=== PATIENT | female | born 1985 | race Caucasian/White ===

== ENCOUNTER 2017-07-29 12:41 | Outpatient (CLI) ==
[2016-06-19 09:21] VITALS: BMI 37.9
--- NOTE | 2017-07-29 13:23 | CT ---
EXAM: CT cervical spine without contrast. HISTORY: Chronic neck pain. Remote trauma. COMPARISON: None available. TECHNIQUE: Multiple axial images of the cervical spine were obtained without intravenous contrast. Images were reformatted in the sagittal and coronal planes. FINDINGS: Beam attenuation degrades image quality. There is straightening of the normal lordosis. Ot herwise, there is normal curvature and alignment. Vertebral body and intervertebral disc heights are maintained. No fracture or subluxation is seen. There is no evidence for significant central canal stenosis within the limitations of artifact. The prevertebral soft tissues are unremarkable. Mild left sphenoid sinus mucosal thickening noted. Nonspecific lymph nodes are seen measuring up to 1 cm bilateral level IIa on axial image 41. Correlation advised. IMPRESSION: No acute abnormality of the cervical spine. Consider MRI if symptoms persist.
== END 2017-07-29 12:42 | disposition home or self-care (01) ==
LOC: RAD 12:41
PROVIDERS: ATTEND Nurse Practitioner Family
DX: M54.2 Cervicalgia (principal); G89.29 Other chronic pain

== ENCOUNTER 2017-12-04 16:44 | Outpatient (CLI) ==
[2016-06-19 09:21] VITALS: BMI 37.9
== END 2017-12-04 16:45 | disposition home or self-care (01) ==
LOC: FCC-LAB 16:44
PROVIDERS: ATTEND Family Medicine
DX: R63.5 Abnormal weight gain (principal); R53.81 Other malaise; R53.83 Other fatigue; Z87.820 Personal history of traumatic brain injury
CPT/HCPCS: 36415; 80053; 84439; 84443; 85025

== ENCOUNTER 2018-03-23 13:48 | Inpatient (IN) ==
[2018-03-23] MEDS ORDERED: ROCEPHIN 1 GM in SODIUM CHLORIDE 50 ML IV STA (14:11)
[2018-03-23] MEDS ORDERED: VANCOMYCIN 1 GM in SODIUM CHLORIDE 250 ML IV STA (14:11)
--- NOTE | 2018-03-23 14:14 | ED.PDOC ---
General ED Provider: Dr. MARIBETH GLEASON Chief Complaint: Extremity Pain/Injury Stated Complaint: Patient was shooting Meth, left arm, it is swollen tender, not able to move the left elbow. it is all swollen red. Time Seen by Physician: 14:13 Mode of Arrival: Walk-In Information Source: Patient, Family Primary Care Provider: JERSON HILTON Nursing and Triage Documentation Reviewed and Agree: Yes Does patient meet sepsis criteria?: No If yes, has appropriate treatment been initiated?: No System Inflammatory Response Syndrome: Not Applicable Sepsis Protocol: For patient's 13 years and over: Temp is 96.8 and below OR 101 and greater Pulse >90 BPM Resp >20/minute Acutely Altered Mental Status Are patient's symptoms suggestive of a new infection, such as: -Pneumonia -Skin, Soft Tissue -Endocarditis -UTI -Bone, Joint Infection -Implantable Device -Acute Abdominal Infection -Wound Infection -Meningitis -Blood Stream Catheter Infection -Unknown Skin Complaint Exam - Skin/Soft Tissue Complaint/Exam Symptoms Are: Still present Timing: Constant Initial Severity: Severe Current Severity: Severe Character: Reports: Redness, Swelling, Raised, Painful Aggravating: Reports: Touch Alleviating: Reports: None Associated Signs and Symptoms: Reports: Fever, Drainage, Tenderness, Red streaks , Joint swelling Related Surgical History: Reports: None Recent Exposure to Others w/Similar Symptoms: No Skin Findings: Present: Erythema, Induration. Absent: Fluctuant mass Differential Diagnoses: Abscess, Cellulitis Review of Systems - Review Of Systems Constitutional: Reports: No symptoms Eyes: Reports: No symptoms Ears, Nose, Mouth, Throat: Reports: No symptoms Respiratory: Reports: No symptoms Cardiac: Reports: No symptoms GI: Reports: No symptoms : Reports: No symptoms Musculoskeletal: Reports: No symptoms Skin: Reports: No symptoms Neurological: Reports: No symptoms Endocrine: Reports: No symptoms Hematologic/Lymphatic: Reports: No symptoms All Other Systems: Reviewed and Negative Past Medical History - Past Medical History Previously Healthy: Yes Endocrine: Reports: None Cardiovascular: Reports: CAD, Hypertension Respiratory: Reports: COPD, Other (Emphysema) Hematological: Reports: None Gastrointestinal: Reports: None Genitourinary: Reports: None Neuro/Psych: Reports: Migraine, Depression, Other (TBI) Musculoskeletal: Reports: None Cancer: Reports: Unknown Last Menstrual Period: 03/01 - Surgical History General Surgical History: Reports: , Unknown - Family History Family History: Reports: Unknown - Social History Smoking Status: Current every day smoker, Heavy tobacco smoker Smoking Cessation Counseling Time: > 3 min - 10 min Hx Substance Use: Yes (meth) Alcohol Screening: Occasionally Physical Exam - Physical Exam Appearance: Ill-appearing, Obese Pain Distress: Severe Eyes: MUNA, EOMI, Conjunctiva clear ENT: Ears normal, Nose normal, Oropharynx normal Respiratory: Airway patent, Breath sounds clear, Breath sounds equal, Respirations nonlabored Cardiovascular: RRR, Pulses normal, No rub, No murmur GI/: Soft, Nontender, No masses, Bowel sounds normal, No Organomegaly Musculoskeletal: Limited ROM, Limited strength Skin: Warm, Dry, Normal color Neurological: Sensation intact, Motor intact, Reflexes intact, Cranial nerves intact, Alert, Oriented Psychiatric: Affect appropriate, Mood appropriate Interpretation - Radiology Interpretation Radiology Interpretation By: Radiologist Radiology Results: Positive Exam Interpreted: CT Scan Critical Care Note - Critical Care Note Total Time (mins): 30 Course - Course Hematology/Chemistry: 03/23/18 14:25 03/23/18 14:25 Orders, Labs, Meds: Lab Review 03/23/18 03/23/18 03/23/18 14:25 14:25 14:25 WBC 11.56 H RBC 4.49 Hgb 14.3 Hct 41.8 MCV 93.1 MCH 31.8 H MCHC 34.2 RDW Coeff of Shilpi 12.8 Plt Count 204 Immature Gran % (Auto) 0.3 Neut % (Auto) 70.5 Lymph % (Auto) 16.6 [place] % (Auto) 11.3 H Eos % (Auto) 1.0 Baso % (Auto) 0.3 Immature Gran # (Auto) 0.0 Neut # (Auto) 8.1 H Lymph # (Auto) 1.9 [place] # (Auto) 1.3 Eos # (Auto) 0.1 Baso # (Auto) 0.0 Sodium 134 L Potassium 3.0 L Chloride 104 Carbon Dioxide 23 Anion Gap 10.0 BUN 5 L Creatinine 0.69 Estimated GFR (MDRD) 97.00 BUN/Creatinine Ratio 7.24 Glucose 110 Lactic Acid 9.0 Calcium 8.7 Total Bilirubin 0.8 AST 15 ALT 22 Alkaline Phosphatase 83 Total Protein 6.4 Albumin 2.7 L Globulin 3.7 Albumin/Globulin Ratio 0.73 Procalcitonin Urine Color Urine Clarity Urine pH Ur Specific [place] Urine Protein Urine Glucose (UA) Urine Ketones Urine Blood Urine Nitrite Urine Bilirubin Urine Urobilinogen Ur Leukocyte Esterase Urine Microscopic WBC Ur Squamous Epith Cells Urine Bacteria Urine Mucus Urine Trichomonas Urine Test Urine Opiates Screen Ur Oxycodone Screen Urine Methadone Screen Ur Propoxyphene Screen Ur Barbiturates Screen U Tricyclic Antidepress Ur Phencyclidine Scrn Ur Amphetamine Screen U Methamphetamines Scrn U Benzodiazepines Scrn Urine Cocaine Screen U Cannabinoids Screen 03/23/18 03/23/18 03/23/18 14:25 14:25 14:25 WBC RBC Hgb Hct MCV MCH MCHC RDW Coeff of Shilpi Plt Count Immature Gran % (Auto) Neut % (Auto) Lymph % (Auto) [place] % (Auto) Eos % (Auto) Baso % (Auto) Immature Gran # (Auto) Neut # (Auto) Lymph # (Auto) [place] # (Auto) Eos # (Auto) Baso # (Auto) Sodium Potassium Chloride Carbon Dioxide Anion Gap BUN Creatinine Estimated GFR (MDRD) BUN/Creatinine Ratio Glucose Lactic Acid Calcium Total Bilirubin AST ALT Alkaline Phosphatase Total Protein Albumin Globulin Albumin/Globulin Ratio Procalcitonin < 0.05 Urine Color [place] Urine Clarity Clear Urine pH 6.5 Ur Specific [place] 1.025 Urine Protein 1+ Urine Glucose (UA) Negative Urine Ketones Negative Urine Blood Negative Urine Nitrite Positive Urine Bilirubin 1+ Urine Urobilinogen >=8.0 Ur Leukocyte Esterase Trace Urine Microscopic WBC 0-2 Ur Squamous Epith Cells 0-2 Urine Bacteria 1+ Urine Mucus 2+ Urine Trichomonas Few Urine Test Negative Urine Opiates Screen Ur Oxycodone Screen Urine Methadone Screen Ur Propoxyphene Screen Ur Barbiturates Screen U Tricyclic Antidepress Ur Phencyclidine Scrn Ur Amphetamine Screen U Methamphetamines Scrn U Benzodiazepines Scrn Urine Cocaine Screen U Cannabinoids Screen 03/23/18 14:25 WBC RBC Hgb Hct MCV MCH MCHC RDW Coeff of Shilpi Plt Count Immature Gran % (Auto) Neut % (Auto) Lymph % (Auto) [place] % (Auto) Eos % (Auto) Baso % (Auto) Immature Gran # (Auto) Neut # (Auto) Lymph # (Auto) [place] # (Auto) Eos # (Auto) Baso # (Auto) Sodium Potassium Chloride Carbon Dioxide Anion Gap BUN Creatinine Estimated GFR (MDRD) BUN/Creatinine Ratio Glucose Lactic Acid Calcium Total Bilirubin AST ALT Alkaline Phosphatase Total Protein Albumin Globulin Albumin/Globulin Ratio Procalcitonin Urine Color Urine Clarity Urine pH Ur Specific [place] Urine Protein Urine Glucose (UA) Urine Ketones Urine Blood Urine Nitrite Urine Bilirubin Urine Urobilinogen Ur Leukocyte Esterase Urine Microscopic WBC Ur Squamous Epith Cells Urine Bacteria Urine Mucus Urine Trichomonas Urine Test Urine Opiates Screen Negative Ur Oxycodone Screen Negative Urine Methadone Screen Negative Ur Propoxyphene Screen Negative Ur Barbiturates Screen Negative U Tricyclic Antidepress Positive Ur Phencyclidine Scrn Negative Ur Amphetamine Screen Positive U Methamphetamines Scrn Positive U Benzodiazepines Scrn Positive Urine Cocaine Screen Negative U Cannabinoids Screen Positive Orders Category Date Time Status ED IV/MEDIPORT/POWERPORT .ONCE EMERGENCY 03/23/18 14:11 Active BLOOD CULTURE (ED ONLY) Stat LAB 03/23/18 14:25 Received CBC W/ AUTO DIFF Stat LAB 03/23/18 14:25 Completed COMPREHENSIVE METABOLIC PANEL Stat LAB 03/23/18 14:25 Completed LACTIC ACID Stat LAB 03/23/18 14:25 Completed PROCALCITONIN Stat LAB 03/23/18 14:25 Completed URINALYSIS C & S IF INDICATED Stat LAB 03/23/18 14:25 Completed URINE CULTURE Stat LAB 03/23/18 14:25 Received URINE DRUG SCREEN (RAPID FOR ED) [DRUG SCREEN, URINE, LAB 03/23/18 14:25 Completed RAPID] Stat URINE Stat LAB 03/23/18 14:25 Completed 0.9 % Sodium Chloride [Saline Flush] MEDS 03/23/18 14:11 Ordered 1 syr IVF PRN PRN Ceftriaxone Sodium [Rocephin] MEDS 03/23/18 17:15 Discontinued 1 gm .ROUTE .STK-MED ONE Ceftriaxone Sodium [Rocephin] 1 gm MEDS 03/23/18 14:11 Discontinued 0.9 % Sodium Chloride [Sodium Chloride] 50 ml IV ONCE Vancomycin HCl [Vancomycin] 1 gm MEDS 03/23/18 14:11 Discontinued 0.9 % Sodium Chloride [Sodium Chloride] [address] FOREARM LEFT WO CONTRAST Stat RADS 03/23/18 14:11 Completed Medications Generic Name Dose Route Start Last Admin Trade Name Freq PRN Reason Stop Dose Admin Sodium Chloride 1 syr 03/23/18 14:11 Saline Flush IVF PRN PRN To flush IV Discontinued Medications Generic Name Dose Route Start Last Admin Trade Name Freq PRN Reason Stop Dose Admin Ceftriaxone Sodium 1 gm/ 50 mls @ 75 mls/hr 03/23/18 14:11 Sodium Chloride IV 03/23/18 14:50 ONCE STA Vancomycin HCl 1 gm/ Sodium 250 mls @ 250 mls/hr 03/23/18 14:11 Chloride IV 03/23/18 15:10 ONCE STA Vital Signs: Temp Pulse Resp BP Pulse Ox 03/23/18 13:50 98.6 F 104 H 20 110/75 96 Departure - Departure Time of Disposition: 17:28 Disposition: ADMITTED INPATIENT Discharge Problem: Phlebitis Cellulitis Qualifiers: Site of cellulitis: extremity Site of cellulitis of extremity: upper extremity Laterality: left Qualified Code(s): L03.114 - Cellulitis of left upper limb Discharge Problem: (Ruled Out): Cellulitis and abscess of left lower extremity Instructions: Cellulitis (ED) Condition: Stable Pt referred to PMD for follow-up: No IPMP verified?: No Allergies/Adverse Reactions: Allergies ondansetron HCl [From Zofran (as hydrochloride)] Adverse Reaction (Verified 13:56) nausea/vomiting. Home Medications: Ambulatory Orders Ziprasidone HCl [Geodon] 60 mg PO BID 07/02/13 Clonazepam [Klonopin] 1 mg PO TID 12/04/17 Quetiapine Fumarate 300 mg PO DAILY 12/04/17 Ziprasidone HCl 20 mg PO BID 12/04/17 Disposition Discussed With: Patient, Family
--- NOTE | 2018-03-23 15:17 | CT ---
Exam: CT of the left forearm without intravenous contrast. Comparison: None available. Reason for exam: Left forearm pain. FINDINGS: No acute fracture or malalignment is seen in the left forearm. There is moderate to marke d inflammatory changes in the proximal left forearm adjacent to the elbow and antecubital fossa. No d iscrete fluid collection is seen. No obvious involvement of the underlying musculature or osseous st ructures. Impression: Moderate to marked inflammatory change in the proximal left forearm without obvious underlying muscul ar or osseous involvement. Image interpretation is limited by the lack of intravenous contrast admin istration. Imaging findings can be seen with infection, inflammation, and hemorrhage. If clinical concern exists for soft tissue pathology, MRI or contrasted CT imaging may be performed f or further characterization. If clinical concern exists for an osseous fracture, radiographs are rec ommended.
--- NOTE | 2018-03-23 16:49 | ED.PDOC ---
Procedures - IV/Art Line Insertion Location: Rt wrist Type of Line: Peripheral IV Invasive Line/IV Catheter Gauge: 22 Number of Attempts: 1 Blood Return Positive: Yes Invasive Line/IV Flushes Without Difficulty: Yes Conscious Sedation - Pre-op Assessment Weight: 270 lb Surgical History: FACIAL SURGERY - Medical History Past Medical History: Hypertension, COPD, Depression Other History: EMPHYSEMA
[2018-03-23] MEDS ORDERED: ROCEPHIN ONE (17:15)
[2018-03-23] MEDS: SODIUM CHLORIDE 1,000 ML IV SCH ×2 (19:30→23:11)
[2018-03-23 19:41] VITALS: BMI 43.2
[2018-03-23] MEDS: TYLENOL PO PRN (19:42)
[2018-03-23] MEDS ORDERED: KLONOPIN ONE (19:57)
[2018-03-23] MEDS ORDERED: ZIPRASIDONE HCL 60 MG PO SCH (21:00)
[2018-03-23] MEDS ORDERED: ZIPRASIDONE HCL 20 MG PO SCH (21:00)
[2018-03-23] MEDS ORDERED: NON-FORMULARY MEDICATION (Clonazepam [Klonopin] 1 MG) PO SCH (21:00)
[2018-03-23] MEDS: LOVENOX SUBCUT SCH (21:08)
[2018-03-23] MEDS: VANCOMYCIN 1.5 GM in SODIUM CHLORIDE 500 ML IV SCH ×2 (21:09→21:14)
[2018-03-24] MEDS: TYLENOL PO PRN (04:29)
[2018-03-24] MEDS: KLONOPIN PO SCH ×3 (08:29→20:53)
[2018-03-24] MEDS: VANCOMYCIN 1 GM in SODIUM CHLORIDE 250 ML IV SCH ×3 (08:29→20:52)
[2018-03-24] MEDS: ZIPRASIDONE HCL 60 MG PO SCH ×2 (08:30→20:54)
[2018-03-24] MEDS: ZIPRASIDONE HCL 20 MG PO SCH ×2 (08:30→20:54)
[2018-03-24] MEDS: LOVENOX SUBCUT SCH (08:31)
[2018-03-24] MEDS ORDERED: SEROQUEL PO SCH (09:00)
[2018-03-24] MEDS ORDERED: NICODERM 21 MG TD SCH (09:00)
[2018-03-24] MEDS ORDERED: QUETIAPINE FUMARATE 300 MG PO SCH (09:00)
[2018-03-24] MEDS: ROCEPHIN 1 GM in SODIUM CHLORIDE 50 ML IV SCH (11:18)
[2018-03-24] MEDS ORDERED: TORADOL IVP STA (13:11)
[2018-03-24] MEDS: SODIUM CHLORIDE 1,000 ML IV SCH ×2 (13:22→23:15)
--- NOTE | 2018-03-24 15:17 | US ---
EXAM: Ultrasound venous Doppler left upper extremity HISTORY: Swelling and redness COMPARISON: None TECHNIQUE: Venous Doppler of the left upper extremity veins was performed. FINDINGS: There is normal color flow and compression of the left jugular, subclavian, axillary, brac hial, basilic, radial, and ulnar vein without evidence of intraluminal thrombus. Suggestion of wall t hickening of the left cephalic vein which demonstrates normal flow, possibly representing mild thromb ophlebitis.. IMPRESSION: 1. No left upper extremity deep venous thrombus. 2. Possible mild left cephalic thrombophlebitis.
[2018-03-24] MEDS ORDERED: NICODERM 21 MG TD STA (19:38)
[2018-03-24] MEDS: SEROQUEL PO SCH (20:53)
[2018-03-25] MEDS: VANCOMYCIN 1 GM in SODIUM CHLORIDE 250 ML IV SCH ×3 (05:03→20:42)
[2018-03-25] MEDS: TYLENOL PO PRN ×2 (05:03→12:20)
[2018-03-25] MEDS ORDERED: K-DUR PO STA (08:34)
[2018-03-25] MEDS: KLONOPIN PO SCH ×3 (09:08→20:44)
[2018-03-25] MEDS: ROCEPHIN 1 GM in SODIUM CHLORIDE 50 ML IV SCH (09:09)
[2018-03-25] MEDS: LOVENOX SUBCUT SCH (09:11)
[2018-03-25] MEDS: ZIPRASIDONE HCL 20 MG PO SCH ×2 (09:16→20:45)
[2018-03-25] MEDS: ZIPRASIDONE HCL 60 MG PO SCH ×2 (09:16→20:45)
[2018-03-25] MEDS: SODIUM CHLORIDE 1,000 ML IV SCH (16:47)
[2018-03-25] MEDS: SEROQUEL PO SCH (20:44)
[2018-03-25] MEDS ORDERED: NICODERM 21 MG TD SCH (21:00)
[2018-03-25] MEDS ORDERED: CITRATE OF MAGNESIA PO STA (21:01)
[2018-03-26] MEDS: VANCOMYCIN 1 GM in SODIUM CHLORIDE 250 ML IV SCH ×3 (05:21→20:11)
[2018-03-26] MEDS: ROCEPHIN 1 GM in SODIUM CHLORIDE 50 ML IV SCH (08:29)
[2018-03-26] MEDS: KLONOPIN PO SCH ×3 (08:34→20:11)
[2018-03-26] MEDS: LOVENOX SUBCUT SCH (08:34)
[2018-03-26] MEDS: ZIPRASIDONE HCL 60 MG PO SCH ×2 (08:37→20:12)
[2018-03-26] MEDS: ZIPRASIDONE HCL 20 MG PO SCH ×2 (08:38→20:12)
--- NOTE | 2018-03-26 08:53 | PN ---
DATE OF SERVICE: 03/25/18 SUBJECTIVE: The patient was admitted with left upper extremity cellulitis and phlebitis. Ultrasound did not show any clots. Potassium is low today 2.9. REVIEW OF SYSTEMS: CONSTITUTIONAL: No fever, no chills. HEENT: Normal. ENDOCRINE: No weight gain, no weight loss. CVS: No angina symptoms. No CHF symptoms. No palpitations. No atypical chest pain for CAD. No shortness of breath. No PND, no orthopnea. RESPIRATORY: No cough, no hemoptysis. GI: No nausea, no vomiting. No abdominal pain. : No hematuria. No polyuria. MUSCULOSKELETAL: No joint swelling. PSYCHIATRIC: Not anxious. No depression. No suicidal thoughts. No homicidal thoughts. SKIN: Intact. No rash. PHYSICAL EXAMINATION: V/S: Blood pressure 104/64, respiratory rate 20, heart rate 80, temperature 97.6 with saturation 95. HEENT: Normocephalic, atraumatic. Mucosa dry. NECK: Supple. No JVD, no carotid bruit. No lymphadenopathy. LUNGS: Clear to auscultation. No rales or rhonchi. HEART: S1, S2 normal. No S3. No murmur, gallop or regurgitation. ABDOMEN: Soft, nontender. Bowel sounds active. No rigidity. No rebound or guarding. No CVA tenderness. EXTREMITIES: No cyanosis, clubbing or pedal edema. Left arm swelling and redness is present more in the elbow area and tender to touch, warm to touch. The size of the swelling and redness is getting smaller. MUSCULOSKELETAL: No joint swelling. NEUROLOGIC: Awake, alert, oriented times three. No focal deficit. LYMPHATIC: No lymph nodes palpable. SKIN: Intact. LABS: WBC 9.0, hgb 12.6, hct 37.1, plt count 227, sodium 138, potassium 2.9, chloride 109, bicarb 21, BUN 3, creatinine 0.64, glucose 138. ASSESSMENT: 1. Severe hyperkalemia 2. Left arm phlebitis and diffused cellulitis 3. IV drug use 4. Depression 5. Anxiety 6. Bipolar disorder 7. Meth and amphetamine use PLAN: 1. Potassium 80mg total PO and we will recheck the Potassium 2. Continue the Rocephin and Vancomycin 3. Keep exercising the upper extremity TIME SPENT: More than 35 minutes MTDD
[2018-03-26] MEDS: SODIUM CHLORIDE 1,000 ML IV SCH (08:59)
--- NOTE | 2018-03-26 11:41 | PN ---
DATE OF SERVICE: 03/24/18 SUBJECTIVE: The patient was admitted from the emergency room yesterday for the left arm cellulitis and thrombophlebitis from the IV drug use. The patient is started on the Rocephin and Vancomycin. Still having the pain and swelling in the left arm. REVIEW OF SYSTEMS: CONSTITUTIONAL: No fever, no chills. HEENT: Normal. ENDOCRINE: No weight gain, no weight loss. CVS: No angina symptoms. No CHF symptoms. No palpitations. No atypical chest pain for CAD. No shortness of breath. No PND, no orthopnea. RESPIRATORY: No cough, no hemoptysis. GI: No nausea, no vomiting. No abdominal pain. : No hematuria. No polyuria. MUSCULOSKELETAL: No joint swelling. PSYCHIATRIC: Not anxious. No depression. No suicidal thoughts. No homicidal thoughts. SKIN: Intact. No rash. PHYSICAL EXAMINATION: HEENT: Normocephalic, atraumatic. Mucosa . NECK: Supple. No JVD, no carotid bruit. No lymphadenopathy. LUNGS: Clear to auscultation. No rales or rhonchi. HEART: S1, S2 normal. No S3. No murmur, gallop or regurgitation. ABDOMEN: Soft, nontender. Bowel sounds active. No rigidity. No rebound or guarding. No CVA tenderness. EXTREMITIES: No cyanosis, clubbing or pedal edema. Left arm area swelling and redness and tenderness is present which is spreading up to the midarm and medial forearm. Circumferential redness and tenderness. MUSCULOSKELETAL: No joint swelling. NEUROLOGIC: Awake, alert, oriented times three. No focal deficit. LYMPHATIC: No lymph nodes palpable. SKIN: Intact. LABS: WBC 10.96, hgb 13.0, hct 39.2, plt count 203, sodium 138, potassium 3.2, chloride 106, Bicarb 24, BUN 5, creatinine 0.69, glucose 121. ASSESSMENT: 1. Left arm cellulitis rule out Thrombophlebitis 2. Polysubstance use, Methamphetamine and cannabis positive. 3. History of bipolar 4. Depression 5. Anxiety disorder PLAN: 1. Continue the Rocephin, Vancomycin 2. Warm compress 3. Ultrasound of the left arm for the DVT TIME SPENT: More than 35 minutes MTDD
[2018-03-26] MEDS: SEROQUEL PO SCH (20:11)
[2018-03-27] MEDS: VANCOMYCIN 1 GM in SODIUM CHLORIDE 250 ML IV SCH (05:09)
[2018-03-27] MEDS: ZIPRASIDONE HCL 60 MG PO SCH (08:45)
[2018-03-27] MEDS: LOVENOX SUBCUT SCH (08:45)
[2018-03-27] MEDS: KLONOPIN PO SCH (08:45)
[2018-03-27] MEDS: ROCEPHIN 1 GM in SODIUM CHLORIDE 50 ML IV SCH (08:45)
[2018-03-27] MEDS: ZIPRASIDONE HCL 20 MG PO SCH (08:46)
[2018-03-27 10:03] VITALS: BP 116/73; TEMP 97.7
--- NOTE | 2018-03-28 13:20 | PN ---
DATE OF SERVICE: 03/26/18 SUBJECTIVE: Left arm redness increased to the upper side of the arm on the left side but the forearm is a lot better, still hurting and motion is restricted. REVIEW OF SYSTEMS: CONSTITUTIONAL: No fever, no chills. HEENT: Normal. ENDOCRINE: No weight gain, no weight loss. CVS: No angina symptoms. No CHF symptoms. No palpitations. No atypical chest pain for CAD. No shortness of breath. No PND, no orthopnea. RESPIRATORY: No cough, no hemoptysis. GI: No nausea, no vomiting. No abdominal pain. : No hematuria. No polyuria. MUSCULOSKELETAL: No joint swelling. PSYCHIATRIC: Not anxious. No depression. No suicidal thoughts. No homicidal thoughts. SKIN: Intact. No rash. PHYSICAL EXAMINATION: V/S: Blood pressure 110/78, respiratory rate 20, heart rate 86, temperature 97.9 and saturation 97%. HEENT: Normocephalic, atraumatic. Mucosa dry. NECK: Supple. No JVD, no carotid bruit. No lymphadenopathy. LUNGS: Clear to auscultation. No rales or rhonchi. HEART: S1, S2 normal. No S3. No murmur, gallop or regurgitation. ABDOMEN: Soft, nontender. Bowel sounds active. No rigidity. No rebound or guarding. No CVA tenderness. EXTREMITIES: No cyanosis, clubbing or pedal edema. Left arm elbow area there is a swelling and redness and the knot is seen. The redness has spread up to the left shoulder, tender to touch and warm to touch. MUSCULOSKELETAL: No joint swelling. NEUROLOGIC: Awake, alert, oriented times three. No focal deficit. LYMPHATIC: No lymph nodes palpable. SKIN: Intact. LABS: WBC 7.21, hgb 12.1, hct 36.6, plt count 236, sodium 141, potassium 3.8, chloride 111, bicarb 23, BUN 3, creatinine 0.62 and glucose 96%. ASSESSMENT: 1. Left arm cellulitis and phlebitis 2. IV drug use 3. Depression 4. Anxiety 5. DJD spine 6. Schizophrenia 7. Bipolar PLAN: 1. Continue the Rocephin and Vancomycin 2. Squeeze ball exercise of the left upper extremity TIME SPENT: More than 35 minutes MTDD
--- NOTE | 2018-04-09 14:37 | HP ---
DATE OF SERVICE: 03/23/18 The patient is seen and examined in the emergency room by myself. I agree with the plan of the progress note. ABENA
--- NOTE | 2018-04-30 14:44 | DS ---
DATE OF SERVICE: 03/27/18 FINAL DIAGNOSIS: 1. CELLULITIS, LEFT ARM 2. IV DRUG USE (METHAMPHETAMINE) 3. STD TRICHOMONAS 4. HYPERTENSION 5. DEPRESSION 6. MULTIPLE SUICIDAL ATTEMPTS 7. MULTIPLE ADMISSIONS IN PSYCHIATRIC UNITS 8. COPD 9. EMPHYSEMA 10. MIGRAINE 11. CHRONIC BACK PAIN AND NECK PAIN 12. LIVER LACERATION STATUS POST TRAUMA 13. RIGHT EYE ORBIT FRACTURE 14. METAL PLATE INSERTION 15. TUBAL LIGATION 16. HEAVY SMOKER DISCHARGE INSTRUCTIONS: 1. Followup appointment on 03/31/18 at 11 a.m. 2. May use warm compress for left arm/antecubital area. 3. Keep left arm elevated as frequently as possible. MEDICATIONS AT DISCHARGE: Klonopin Seroquel Kurt NEW PRESCRIPTIONS: [place] 5-325 mg twice a day q.8hr. Bactrim DS 800/160 mg twice a day for 7 days. Clindamycin 300 mg take one capsule twice a day for 5 days. DIET INSTRUCTIONS: Regular; Healthy Heart. ACTIVITY: Get plenty of rest at home. Gradually increase your activity as tolerated. Please exercise with soft ball in the hand. SMOKING: Stop smoking. DISEASE SPECIFIC EDUCATION: Advised not to use any IV drugs at this time. Left arm cellulitis and abscess related to IV drug use discussed. Risk of endocarditis discussed, verbalized understanding. Antibiotic use and diarrhea discussed. HOSPITAL COURSE: This is a 32-year-old female, who came to the emergency room with left arm swelling, redness and tenderness and the whole shoulder is sore. White count was 11.56. Potassium was 3.0. Toxicology came back positive for the tricyclic antidepressant, Amphetamine, methamphetamine, Benzo and cannabinoids. With IV drug use and cellulitis we were ruling out thrombophlebitis and clots. The patient was started on Vancomycin 1 gm daily. Continue home medications. Lovenox for DVT prophylaxis and Rocephin 1 gm daily. Toradol for pain. Gradually the pain, redness and swelling was getting better. Venous Doppler showed only phlebitis, no thrombosis. Thrombophlebitis mild. At that time, the patient was continued with IV antibiotics, warm compresses. Size and swelling of the left antecubital area is getting better, did not have any complication during the hospital stay. Hemoglobin stayed stable. Potassium became normal at 3.7. Urine did not grow any bacteria. At that time, the patient was discharged. The patient did have a small red spot in the left antecubital area which is spreading to the left arm up to 5 cm tall in an oval fashion, warm to touch. At that time, the patient had been doing good, did not have any complications and was discharged home to be seen in the [facility] by myself for followup. TIME SPENT: MORE THAN 65 MINUTES MTDD
== END 2018-03-27 14:01 | disposition home or self-care (01) | DRG 603 ==
LOC: ED 13:48 → MEDSURG B 17:50
PROVIDERS: ADMIT Emergency Medicine; ATTEND Emergency Medicine
DX: L03.114 Cellulitis of left upper limb (principal); S40.852A Superficial foreign body of left upper arm, initial encounter; A59.9 Trichomoniasis, unspecified; I10 Essential (primary) hypertension; I80.9 Phlebitis and thrombophlebitis of unspecified site; E87.5 Hyperkalemia; J44.9 Chronic obstructive pulmonary disease, unspecified; J43.9 Emphysema, unspecified; G43.909 Migraine, unspecified, not intractable, without status migrainosus; M54.9 Dorsalgia, unspecified; M50.90 Cervical disc disorder, unspecified, unspecified cervical region; F20.9 Schizophrenia, unspecified; F41.8 Other specified anxiety disorders; F19.10 Other psychoactive substance abuse, uncomplicated; F31.9 Bipolar disorder, unspecified; Z72.0 Tobacco use
CPT/HCPCS: 36415; 80053; 80202; 80306; 81001; 81025; 83605; 84132; 84145; 85025; 87040; 87086; 96365; 96366; 99233; 99284

== ENCOUNTER 2018-08-15 02:23 | Emergency (ER) ==
[2018-08-15 02:26] VITALS: BP 157/95; TEMP 97.6; BMI 39.9
[2018-08-15] MEDS ORDERED: DILAUDID 1 MG/ML SYRINGE IVP STA (02:49)
[2018-08-15] MEDS ORDERED: SODIUM CHLORIDE 1,000 ML IV STA (02:49)
[2018-08-15] MEDS ORDERED: PHENERGAN 25 MG/ML VIAL 25 MG in SODIUM CHLORIDE 50 ML IV STA (02:49)
[2018-08-15] MEDS ORDERED: PROTONIX IV IVP STA (02:49)
--- NOTE | 2018-08-15 02:54 | ED.PDOC ---
General ED Provider: Dr. ASHLEY MABRY Chief Complaint: Abdominal Pain Stated Complaint: One day history of diffuse abdominal pain that started on the periumbilical area radiating to the right flank. Time Seen by Physician: 02:40 Mode of Arrival: Walk-In Information Source: Patient, Family Exam Limitations: Clinical condition Primary Care Provider: JERSON HILTON Nursing and Triage Documentation Reviewed and Agree: Yes Does patient meet sepsis criteria?: No If yes, has appropriate treatment been initiated?: No System Inflammatory Response Syndrome: Not Applicable Sepsis Protocol: For patient's 13 years and over: Temp is 96.8 and below OR 101 and greater Pulse >90 BPM Resp >20/minute Acutely Altered Mental Status Are patient's symptoms suggestive of a new infection, such as: -Pneumonia -Skin, Soft Tissue -Endocarditis -UTI -Bone, Joint Infection -Implantable Device -Acute Abdominal Infection -Wound Infection -Meningitis -Blood Stream Catheter Infection -Unknown GI Complaint Exam - Abdominal Pain Complaint/Exam Onset: Sudden Duration: one day Symptoms Are: Still present Timing: Constant Initial Severity: Moderate Current Severity: Severe Location of Pain: Diffuse Radiates To: Reports: Flank Character: Reports: Aching, Throbbing Aggravating: Reports: Food Alleviating: Reports: None Associated Signs and Symptoms: Reports: Back pain, Nausea, Vomiting Ectopic Risk Factors: Reports: Tubal ligation Differential Diagnoses: Appendicitis, Pancreatitis, GB, UTI Review of Systems - Review Of Systems Constitutional: Reports: No symptoms Respiratory: Reports: No symptoms Cardiac: Reports: No symptoms GI: Reports: Abdominal pain, Nausea, Poor appetite, Vomiting Musculoskeletal: Reports: Back pain (right flank pain ) Skin: Reports: No symptoms Neurological: Reports: Anxiety Endocrine: Reports: No symptoms Hematologic/Lymphatic: Reports: No symptoms All Other Systems: Reviewed and Negative Past Medical History - Past Medical History Previously Healthy: Yes Endocrine: Reports: None Cardiovascular: Reports: CAD, Hypertension Respiratory: Reports: COPD, Other (Emphysema) Hematological: Reports: None Gastrointestinal: Reports: None Genitourinary: Reports: None Neuro/Psych: Reports: Migraine, Depression, Other (TBI) Musculoskeletal: Reports: None Cancer: Reports: Unknown Last Menstrual Period: 3rd of this month - Surgical History General Surgical History: Reports: , Unknown - Family History Family History: Reports: Unknown - Social History Smoking Status: Current every day smoker, Heavy tobacco smoker Hx Substance Use: No Alcohol Screening: None - Immunizations Tetanus Shot up to Date: Yes Physical Exam - Physical Exam Appearance: Ill-appearing, Obese Ill-appearing: Moderate Pain Distress: Severe Neck: Supple Respiratory: Airway patent, Breath sounds equal, Breath sounds diminished, Respirations nonlabored Cardiovascular: RRR, Pulses normal, No rub, No murmur GI/: Bowel sounds normal, Tender Musculoskeletal: Normal strength, ROM intact, No edema, No calf tenderness Skin: Warm Neurological: Sensation intact, Alert, Oriented Psychiatric: Anxious Interpretation - Radiology Interpretation Radiology Interpretation By: ED Physician Radiology Results: Positive (Cholelithiasis) Exam Interpreted: CT Scan (no stones ) Re-Evaluation - Re-Evaluation Time of Re-Evaluation: 04:41 Status: Improved Pain Level: much better Critical Care Note - Critical Care Note Total Time (mins): 0 Course - Course Hematology/Chemistry: 08/15/18 02:58 08/15/18 02:58 Orders, Labs, Meds: Lab Review 08/15/18 08/15/18 08/15/18 02:58 02:58 02:58 WBC 11.28 H RBC 4.15 L Hgb 13.6 Hct 39.4 MCV 94.9 MCH 32.8 H MCHC 34.5 RDW Coeff of Shilpi 13.0 Plt Count 272 Immature Gran % (Auto) 0.3 Neut % (Auto) 76.2 Lymph % (Auto) 15.7 [place] % (Auto) 6.9 Eos % (Auto) 0.5 Baso % (Auto) 0.4 Immature Gran # (Auto) 0.0 Neut # (Auto) 8.6 H Lymph # (Auto) 1.8 [place] # (Auto) 0.8 Eos # (Auto) 0.1 Baso # (Auto) 0.0 Sodium 136.0 L Potassium 3.38 L Chloride 105.3 Carbon Dioxide 26.6 Anion Gap 7.48 BUN 7.2 Creatinine 0.74 Estimated GFR (MDRD) 89.00 BUN/Creatinine Ratio 9.72 Glucose 119.0 H Calcium 8.57 Total Bilirubin 0.46 AST 26.0 ALT 19.3 Alkaline Phosphatase 95.9 Total Protein 6.53 Albumin 3.56 Globulin 2.97 Albumin/Globulin Ratio 1.19 Amylase 45.3 Lipase 108.7 Serum , Qual Negative Urine Color Urine Clarity Urine pH Ur Specific [place] Urine Protein Urine Glucose (UA) Urine Ketones Urine Blood Urine Nitrite Urine Bilirubin Urine Urobilinogen Ur Leukocyte Esterase Urine Microscopic RBC Urine Microscopic WBC Ur Squamous Epith Cells Urine Bacteria Urine Mucus 08/15/18 03:30 WBC RBC Hgb Hct MCV MCH MCHC RDW Coeff of [place] Plt Count Immature Gran % (Auto) Neut % (Auto) Lymph % (Auto) [place] % (Auto) Eos % (Auto) Baso % (Auto) Immature Gran # (Auto) Neut # (Auto) Lymph # (Auto) [place] # (Auto) Eos # (Auto) Baso # (Auto) Sodium Potassium Chloride Carbon Dioxide Anion Gap BUN Creatinine Estimated GFR (MDRD) BUN/Creatinine Ratio Glucose Calcium Total Bilirubin AST ALT Alkaline Phosphatase Total Protein Albumin Globulin Albumin/Globulin Ratio Amylase Lipase Serum , Qual Urine Color Yellow Urine Clarity Clear Urine pH 6.5 Ur Specific [place] >=1.030 Urine Protein Negative Urine Glucose (UA) Negative Urine Ketones Negative Urine Blood Negative Urine Nitrite Negative Urine Bilirubin Negative Urine Urobilinogen 0.2 Ur Leukocyte Esterase Trace Urine Microscopic RBC 2-5 Urine Microscopic WBC 5-10 Ur Squamous Epith Cells 5-10 Urine Bacteria Trace Urine Mucus Trace Orders Category Date Time Status ED IV/MEDIPORT/POWERPORT .ONCE EMERGENCY 08/15/18 02:49 Active AMYLASE Stat LAB 08/15/18 02:58 Completed CBC W/ AUTO DIFF Stat LAB 08/15/18 02:58 Completed COMPREHENSIVE METABOLIC PANEL Stat LAB 08/15/18 02:58 Completed HCG QUALITATIVE [SERUM ] Stat LAB 08/15/18 02:58 Completed LIPASE Stat LAB 08/15/18 02:58 Completed URINALYSIS C & S IF INDICATED Stat LAB 08/15/18 03:30 Completed URINE CULTURE Stat LAB 08/15/18 03:30 Received 0.9 % Sodium Chloride [Saline Flush] MEDS 08/15/18 02:49 Ordered 1 syr IVF PRN PRN Hydromorphone HCl [Dilaudid 1 mg/ml Syringe] MEDS 08/15/18 02:49 Discontinued 1 mg IVP ONCE STA Ketorolac Tromethamine [Toradol] MEDS 08/15/18 04:05 Discontinued 30 mg IVP ONCE STA Pantoprazole Sodium [Protonix IV] MEDS 08/15/18 02:49 Discontinued 40 mg IVP ONCE STA Promethazine HCl [Phenergan 25 mg/ml Vial] MEDS 08/15/18 02:56 Discontinued 25 mg .ROUTE .STK-MED ONE Promethazine HCl [Phenergan 25 mg/ml Vial] 25 mg MEDS 08/15/18 02:49 Discontinued 0.9 % Sodium Chloride [Sodium Chloride] 50 ml IV ONCE Sodium Chloride 0.9% [Sodium Chloride] 1,000 ml MEDS 08/15/18 02:[address] ABD/PEL WO RENAL STONE PROT Stat RADS 08/15/18 02:49 Completed Medications Generic Name Dose Route Start Last Admin Trade Name Freq PRN Reason Stop Dose Admin Sodium Chloride 1 syr 08/15/18 02:49 Saline Flush IVF PRN PRN To flush IV Discontinued Medications Generic Name Dose Route Start Last Admin Trade Name Freq PRN Reason Stop Dose Admin Hydromorphone HCl 1 mg 08/15/18 02:49 08/15/18 02:58 Dilaudid 1 Mg/Ml Syringe IVP 08/15/18 02:50 1 mg ONCE STA Administration Promethazine HCl 25 mg/ Sodium 51 mls @ 75 mls/hr 08/15/18 02:49 08/15/18 02: 58 Chloride IV 08/15/18 03:29 75 mls/hr ONCE STA Administration Sodium Chloride 1,000 mls @ 1,000 mls/hr 08/15/18 02:49 08/15/18 02:59 Sodium Chloride IV 08/15/18 03:48 1,000 mls/hr BOLUS STA Administration Ketorolac Tromethamine 30 mg 08/15/18 04:05 08/15/18 04:08 Toradol IVP 08/15/18 04:06 30 mg ONCE STA Administration Pantoprazole Sodium 40 mg 08/15/18 02:49 08/15/18 02:59 Protonix Iv IVP 08/15/18 02:50 40 mg ONCE STA Administration Vital Signs: Temp Pulse Resp BP Pulse Ox 08/15/18 02:24 97.6 F 91 H 18 157/95 H 97 Departure - Departure Time of Disposition: 04:41 Disposition: HOME SELF-CARE Discharge Problem: Abdominal pain Instructions: Abdominal Pain (ED) Condition: Fair Pt referred to PMD for follow-up: Yes IPMP verified?: No Additional Instructions: Push fluids Take medications as prescribed for pain Follow up with PCP in 1-2 days Prescriptions: Promethazine HCl [Phenergan Tab] 25 mg PO Q6H PRN #15 tablet PRN Reason: Nausea / Vomiting Tramadol HCl [Ultram] 50 mg PO Q6H PRN #14 tablet PRN Reason: Severe Pain Allergies/Adverse Reactions: Allergies ondansetron HCl [From Zofran (as hydrochloride)] Adverse Reaction (Verified 02:32) nausea/vomiting. Home Medications: Ambulatory Orders Promethazine HCl [Phenergan Tab] 25 mg PO Q6H PRN #15 tablet 08/15/18 Tramadol HCl [Ultram] 50 mg PO Q6H PRN #14 tablet 08/15/18 Disposition Discussed With: Patient, Family
[2018-08-15] MEDS ORDERED: PHENERGAN 25 MG/ML VIAL ONE (02:56)
[2018-08-15] MEDS ORDERED: TORADOL IVP STA (04:05)
--- NOTE | 2018-08-15 04:13 | CT ---
EXAM: CT scan abdomen pelvis without contrast HISTORY: Right-sided pain COMPARISON: CT scan chest abdomen pelvis 07/22/2014 FINDINGS: Contiguous axial images obtained from lung bases to the symphysis pubis without contrast u tilizing 3-mm collimation. Sagittal and coronal reconstructions were imaged and reviewed.. The visu alized lung bases are clear.. Gallstone seen within the gallbladder. The liver pancreas spleen and adrenal glands have normal unenhanced CT appearance. The kidneys are morphologically normal. There is a normal appendix. The abdominal aorta is normal in course and caliber. There is a small umbilic al hernia containing only fat. There is no free fluid or inflammatory changes. The bladder is small volumed limiting evaluation.. Bone windows reveals no evidence of lytic or blastic lesions. IMPRESSION: Cholelithiasis. No evidence of nephrolithiasis ureterolithiasis. No free fluid or inflammatory changes.
[2018-08-15] MEDS ORDERED: BENTYL IM STA (04:43)
== END 2018-08-15 05:15 | disposition home or self-care (01) ==
LOC: ED 02:23
DX: R10.9 Unspecified abdominal pain (principal); M54.9 Dorsalgia, unspecified; R11.2 Nausea with vomiting, unspecified; I25.10 Atherosclerotic heart disease of native coronary artery without angina pectoris; I10 Essential (primary) hypertension; F17.210 Nicotine dependence, cigarettes, uncomplicated
CPT/HCPCS: 36415; 74176; 80053; 81001; 82150; 83690; 84703; 85025; 87086; 96361; 96365; 96366; 96375; 99284

== ENCOUNTER 2018-11-22 02:02 | Emergency (ER) ==
[2018-11-22 02:12] VITALS: BP 126/82; TEMP 99.4; BMI 40.1
[2018-11-22] MEDS ORDERED: VISTARIL INJ IM STA (02:34)
[2018-11-22] MEDS ORDERED: BUSPAR PO STA (03:39)
--- NOTE | 2018-11-22 03:41 | ED.PDOC ---
General ED Provider: Dr. ASHLEY MABRY Chief Complaint: Shortness of Air Stated Complaint: Pateint is a 33 year old female who comes to the ER with anxeity and cold symptoms for one week. Admits to use of Methamphetamine today. States she has been getting valium off the street and take it Three times a day. Is yet to see a Psychiatrist for follow up. Used to get a prescription for Clonazepam last year. Time Seen by Physician: 02:15 Mode of Arrival: Walk-In Information Source: Patient Primary Care Provider: JORGE LUIS RAMIREZ Seen Within Last 72 Hours for Same Complaint By: ED Nursing and Triage Documentation Reviewed and Agree: Yes Does patient meet sepsis criteria?: No System Inflammatory Response Syndrome: Not Applicable Sepsis Protocol: For patient's 13 years and over: Temp is 96.8 and below OR 101 and greater Pulse >90 BPM Resp >20/minute Acutely Altered Mental Status Are patient's symptoms suggestive of a new infection, such as: -Pneumonia -Skin, Soft Tissue -Endocarditis -UTI -Bone, Joint Infection -Implantable Device -Acute Abdominal Infection -Wound Infection -Meningitis -Blood Stream Catheter Infection -Unknown Psychological Complaint Exam - Psychiatric Complaint/Exam Patient Complains Of: Present: Depression, Other (anxiety ) Onset/Duration: 1 week Symptoms Are: Still present Timing: Constant Current Severity: Moderate Character: Present: Anxious Aggravating: Reports: Drug use Related History: Denies: Suicidal thoughts, Suicidal plan, Suicidal gestures, Homicidal thoughts, Homicidal plan, Homicidal gestures, Prior attempts, Recent stressors Completed Suicide Risk Factors: None Patient In Custody Of Police: No Social Withdrawal Present: No Social Isolation Present: No Prior Suicide Attempt: No Injury From Prior Suicide Attempt: No Mood: Present: Anxious Thought Process: Present: Logical Insight: Present: Good Memory: Intact Judgement: Normal Danger To Others: No Differential Diagnoses: Anxiety Review of Systems - Review Of Systems Constitutional: Reports: No symptoms Eyes: Reports: No symptoms Ears, Nose, Mouth, Throat: Reports: No symptoms Respiratory: Reports: Short of air Cardiac: Reports: No symptoms GI: Reports: No symptoms : Reports: No symptoms Musculoskeletal: Reports: No symptoms Skin: Reports: No symptoms Neurological: Reports: Anxiety Endocrine: Reports: No symptoms Hematologic/Lymphatic: Reports: No symptoms All Other Systems: Reviewed and Negative Past Medical History - Past Medical History Previously Healthy: Yes Endocrine: Reports: None Cardiovascular: Reports: CAD, Hypertension Respiratory: Reports: COPD, Other (Emphysema) Hematological: Reports: None Gastrointestinal: Reports: None Genitourinary: Reports: None Neuro/Psych: Reports: Migraine, Depression, Other (TBI) Musculoskeletal: Reports: None Cancer: Reports: Unknown Last Menstrual Period: 09/16/18 - Surgical History General Surgical History: Reports: , Unknown - Family History Family History: Reports: Unknown - Social History Smoking Status: Current every day smoker, Heavy tobacco smoker Hx Substance Use: No (marijuana) Alcohol Screening: Occasionally - Immunizations Tetanus Shot up to Date: Yes (received immun 2 months ago) Physical Exam - Physical Exam Appearance: Obese Neck: Supple Respiratory: Breath sounds diminished Cardiovascular: Pulses normal, Tachycardia Skin: Warm, Dry, Normal color Neurological: Alert, Oriented Psychiatric: Anxious Critical Care Note - Critical Care Note Total Time (mins): 0 Comments: states has been getting Valium off the street and takes it 3 times a day. states that lo messes with her Bipolar Course - Course Orders, Labs, Meds: Orders Category Date Time Status Buspirone HCl [Buspar] MEDS 11/22/18 03:39 Discontinued 10 mg PO ONCE STA Hydroxyzine HCl [Vistaril Inj] MEDS 11/22/18 02:34 Discontinued 50 mg IM ONCE STA Prednisone MEDS 11/22/18 03:58 Discontinued 40 mg PO ONCE STA Medications Discontinued Medications Generic Name Dose Route Start Last Admin Trade Name Freq PRN Reason Stop Dose Admin Buspirone HCl 10 mg 11/22/18 03:39 11/22/18 04:03 Buspar PO 11/22/18 03:40 Not Given ONCE STA Hydroxyzine HCl 50 mg 11/22/18 02:34 11/22/18 02:38 Vistaril Inj IM 11/22/18 02:35 50 mg ONCE STA Administration Prednisone 40 mg 11/22/18 03:58 11/22/18 04:03 Prednisone PO 11/22/18 03:59 40 mg ONCE STA Administration Vital Signs: Temp Pulse Resp BP Pulse Ox 11/22/18 02:02 99.4 F 106 H 22 126/82 97 Departure - Departure Time of Disposition: 03:50 Disposition: HOME SELF-CARE Discharge Problem: Panic anxiety syndrome, Drug abuse and dependence, Bronchitis Instructions: Acute Bronchitis (ED), Methamphetamine Abuse (ED) Condition: Stable Pt referred to PMD for follow-up: Yes IPMP verified?: Yes (Used to get clonoazepam last dose was last tabs. Tramadol was in N) Additional Instructions: Stop getting your Valium from the Street follow up with PCP in 2-3 days Take Valium and Atarax as needed for Anxiety Prescriptions: Hydroxyzine HCl [Atarax] 25 mg PO TID PRN #25 tablet PRN Reason: Anxiety Prednisone 20 mg PO DAILYWM #5 tablet Allergies/Adverse Reactions: Allergies ondansetron HCl [From Zofran (as hydrochloride)] Adverse Reaction (Verified 02:12) nausea/vomiting. Home Medications: Ambulatory Orders Diazepam [Valium] 1 mg PO TID 11/22/18 Hydroxyzine HCl [Atarax] 25 mg PO TID PRN #25 tablet 11/22/18 Lisinopril 0 mg PO DAILY 11/22/18 Prednisone 20 mg PO DAILYWM #5 tablet 11/22/18 Ziprasidone HCl [Geodon] 20 mg PO BID 11/22/18 Disposition Discussed With: Patient
[2018-11-22] MEDS ORDERED: PREDNISONE PO STA (03:58)
== END 2018-11-22 04:12 | disposition home or self-care (01) ==
LOC: ED 02:02
DX: R06.02 Shortness of breath (principal); F41.9 Anxiety disorder, unspecified; F15.90 Other stimulant use, unspecified, uncomplicated; F32.9 Major depressive disorder, single episode, unspecified; Z72.0 Tobacco use; J40 Bronchitis, not specified as acute or chronic; F41.0 Panic disorder [episodic paroxysmal anxiety]
CPT/HCPCS: 99282